=== PATIENT | female | born 1985 | race Hispanic/Latino ===

== ENCOUNTER 2018-07-14 08:18 | Outpatient (CLI) | payer OTHER ==
--- NOTE | 2018-07-14 11:38 | ULT ---
ULTRASOUND OBSTETRICAL COMPLETE: DATE: 07-14-18 HISTORY: 32-year-old female for Z34.82, encounter for supervision of other normal , 2nd trimester. FINDINGS: number: Kevin lie: Breech Maternal cervix: 6 cm in length. Closed. Placenta: Anterior. No placenta previa. Amniotic fluid volume: MIGUEL 16 cm heart rate: 146 bpm The following anatomy is visualized, with no evidence of anomalies: Head, lateral ventricles, cerebellum, nose and lips, spine, upper limbs, lower limbs, four chamber he art, umbilical cord, cord insertion, stomach, kidneys, and bladder. biometry: Head circumference (HC): 21.2 cm 23 w 3 d Biparietal diameter (BPD): 5.7 cm 23 w 4 d Abdominal circumference (AC): 18.2 cm 23 w 1 d Femur length (FL): 3.9 cm 23 w 4 d Average ultrasound age (AUA): 23 w 2 d Estimated date of delivery (HERI): 11-08-2018 Last menstrual period (LMP): 01-29-2018 Gestational age by LMP: 23 w 5 d Estimated weight (EFW): 544 g +/- 79 g (1 lb. 3 oz. +/- 3 oz.) IMPRESSION: 1. Live 2nd trimester intrauterine gestation. 2. Estimated gestational age of 23 weeks, 2 days. 3. Breech lie. 4. No anatomical abnormalities. jn POS: TPC
== END 2018-07-14 08:19 | disposition home or self-care (01) ==
LOC: BICULT 08:18
PROVIDERS: ATTEND Nurse Practitioner
DX: Z34.82 Encounter for supervision of other normal pregnancy, second trimester (principal); O32.1XX0 Maternal care for breech presentation, not applicable or unspecified; Z3A.23 23 weeks gestation of pregnancy
CPT/HCPCS: 76805

== ENCOUNTER 2018-10-09 06:22 | Inpatient (IN) | payer OTHER, SELFPAY ==
[2018-10-09] MEDS ORDERED: hydrALAZINE 20 MG/ML VIAL ONE (07:23)
[2018-10-09] MEDS ORDERED: Labetalol HCl 100 MG/20 ML VIAL ONE (07:23)
[2018-10-09] MEDS: Lactated Ringer's 1,000 ML IV SCH (07:45)
[2018-10-09] MEDS ORDERED: Ondansetron PF 4 MG/2 ML Vial IVP PRN (07:48)
[2018-10-09] MEDS: Labetalol HCl 100 MG/20 ML VIAL SLOW IVP PRN ×2 (07:49→08:03)
[2018-10-09] MEDS ORDERED: Calcium Gluc 4.6 MEQ/10 ML (100 MG/ML) SLOW IVP PRN (07:50)
[2018-10-09] MEDS ORDERED: Magnesium Sulfate 20 GM/WATER 500 ML BAG IVPB SCH (08:00)
[2018-10-09] MEDS ORDERED: Betamet Acet/Betamet Na Ph 30 MG/5 ML VIAL ONE (08:05)
[2018-10-09] MEDS ORDERED: Magnesium Sulfate 20 gm/500 ml 20 GM/500 ML BAG ONE (08:05)
[2018-10-09 08:09] LABS: Hemoglobin 12.6 g/dL (12.0-16.0); Mean Corpuscular HGB CONC 34.6 g/dL (32.0-36.0); Mean Corpuscular Hemoglobin 32.5 pg (27.0-31.0); Mean Platelet Volume 10.3 fL (7.4-10.4); Platelet Count 143 thou/uL (130-400); RBC Distribution Width 13.2 % (11.5-14.5); Red Blood Cell (RBC) Count 3.86 mill/uL (4.20-5.40); White Blood Cell (WBC) Count 10.5 thou/uL (4.8-10.8)
[2018-10-09] MEDS: Betamet Acet/Betamet Na Ph 30 MG/5 ML VIAL IM SCH (08:11)
[2018-10-09] MEDS: Magnesium Sulfate 20 gm/500 ml 20 GM/500 ML BAG IVPB SCH ×2 (08:32→16:02)
[2018-10-09 08:33] LABS: ALT (SGPT) 37 U/L (8-55); AST (SGOT) 42 U/L (5-34); Albumin 3.2 g/dL (3.5-5.0); Alkaline Phosphatase 136 U/L (40-150); Anion Gap 15 mmol/L (10-20); BUN (Urea Nitrogen) 13 mg/dL (7.0-18.7); Bilirubin, Total 0.3 mg/dL (0.2-1.2); Calc. Creatinine Clearance 176 mL/min (70-130); Calcium 8.9 mg/dL (7.8-10.44); Carbon Dioxide 20 mmol/L (22-29); Chloride 105 mmol/L (98-107); Estimated GFR-MDRD Greater than 90; Glucose 79 mg/dL (70-105); Potassium 4.6 mmol/L (3.5-5.1); Protein, Total 6.2 g/dL (6.0-8.3); Sodium 135 mmol/L (136-145)
[2018-10-09 08:57] LABS: Hep B Surf Ag Non-Reactive S/CO (NonReactive)
[2018-10-09 09:36] LABS: Syphilis Antibody Nonreactive (Nonreactive); Syphilis Antibody Index 0.03 S/CO (<1.00 Non-Reactive)
[2018-10-09 10:25] VITALS: BMI 39.0
[2018-10-09] MEDS: Labetalol 100 MG TAB PO SCH ×2 (10:54→18:35)
[2018-10-10] MEDS: Magnesium Sulfate 20 gm/500 ml 20 GM/500 ML BAG IVPB SCH (01:14)
[2018-10-10 06:45] LABS: Hemoglobin 11.5 g/dL (12.0-16.0); Mean Corpuscular HGB CONC 34.4 g/dL (32.0-36.0); Mean Corpuscular Hemoglobin 32.4 pg (27.0-31.0); Mean Corpuscular Volume 94.1 fL (78.0-98.0); Mean Platelet Volume 9.5 fL (7.4-10.4); Platelet Count 139 thou/uL (130-400); RBC Distribution Width 13.3 % (11.5-14.5); Red Blood Cell (RBC) Count 3.54 mill/uL (4.20-5.40)
[2018-10-10 06:52] LABS: Band 3 % (5-11); Lymphocytes 14 % (21-51); MDiff Complete? YES; Monocytes 5 % (0-10); Neutrophil 78 % (42-75); Platelet Morphology Comment Appears Adequate
[2018-10-10 07:09] LABS: ALT (SGPT) 35 U/L (8-55); AST (SGOT) 34 U/L (5-34); Alkaline Phosphatase 121 U/L (40-150); Anion Gap 16 mmol/L (10-20); BUN (Urea Nitrogen) 16 mg/dL (7.0-18.7); Bilirubin, Total 0.2 mg/dL (0.2-1.2); Calc. Creatinine Clearance 176 mL/min (70-130); Calcium 7.2 mg/dL (7.8-10.44); Carbon Dioxide 16 mmol/L (22-29); Chloride 103 mmol/L (98-107); Estimated GFR-MDRD Greater than 90; Globulin 3.1 g/dL (2.4-3.5); Glucose 110 mg/dL (70-105); Potassium 4.8 mmol/L (3.5-5.1); Protein, Total 6.1 g/dL (6.0-8.3); Sodium 130 mmol/L (136-145)
[2018-10-10] MEDS: Betamet Acet/Betamet Na Ph 30 MG/5 ML VIAL IM SCH (08:16)
[2018-10-10 09:50] LABS: Urine Total Volume 2195 mL (600-1600)
[2018-10-10 09:54] LABS: Protein - 24 Hr 1910 mg/24 hr (Less than 300); Protein, Urine 87 mg/dL (1-14)
[2018-10-10] MEDS: Lactated Ringer's 1,000 ML IV SCH ×2 (11:18→19:27)
[2018-10-10] MEDS: Labetalol 100 MG TAB PO SCH (12:24)
[2018-10-10] MEDS ORDERED: Labetalol 100 MG TAB PO SCH ×2 (12:45→21:00)
[2018-10-11] MEDS: Lactated Ringer's 1,000 ML IV SCH ×2 (00:05→14:28)
[2018-10-11] MEDS: Labetalol 100 MG TAB PO SCH ×2 (00:07→12:49)
[2018-10-11 12:50] VITALS: BP 125/67
--- NOTE | 2018-10-11 13:38 | ULT ---
OB ULTRASOUND: HISTORY: Gestational hypertension. FINDINGS: Real-time imaging of the pelvis was obtained transabdominally. This shows a single viable intrauteri ne which is in a cephalic presentation. The placenta is anterior in location without evide nce of previa. Visually, the amniotic fluid appears low. Amniotic fluid index is 9.2. The he art rate is 124 b.p.m. measurements are as follows: BPD 8.6 cm, 34 weeks 6 days Head circumference 31.3 cm, 35 weeks 1 day Abdominal circumference 30.1 cm, 34 weeks 0 days Femur length 6.7 cm, 34 weeks 2 days Limited assessment of anatomy. A four-chamber heart was not well visualized. Head was difficu lt to visualize as were the facial structures and cord region. Doppler evaluation of umbilical artery: Umbilical artery measurements were obtained at several levels. Near the insertion on the fetus, syst olic velocity measures were 101 cm/s, diastolic 44 cm/s for a systolic to diastolic ratio of 2.3. At the level of the placenta, systolic measurements are 55 cm/s, end-diastolic 30 cm/s with a ratio of 1.8. IMPRESSION: 1. Single viable intrauterine in a cephalic presentation. Overall measurements correspond ing to a gestational age of 34 weeks 4 days with estimated date of delivery of 11/18/2018. Clinical a ge is 36 weeks 3 days. This is within the normal range. 2. Amniotic fluid index of 9. Visually, the fluid appears borderline low. 3. Placenta which his anterior in location without evidence of previa. 4. The systolic to diastolic ratios of the umbilical artery range from 1.8 to 2.3. All measurements obtained below systolic to diastolic ratio of 3. POS: OFF
== END 2018-10-11 15:09 | disposition home health service (06) | DRG 833 ==
LOC: L&D/OP 06:22 → L&D 09:51
PROVIDERS: ADMIT Obstetrics & Gynecology; ATTEND Obstetrics & Gynecology
DX: O13.3 Gestational [pregnancy-induced] hypertension without significant proteinuria, third trimester (principal); Z3A.35 35 weeks gestation of pregnancy
CPT/HCPCS: 36415; 51702; 76700; 76815; 80053; 81003; 82570; 84156; 85007; 85027; 86780; 86850; 86900; 86901; 87081; 87340; 99285; J0360; J0702; J3475

== ENCOUNTER 2018-10-12 00:45 | Inpatient (IN) | payer MEDICAID, SELFPAY ==
[2018-10-12] MEDS ORDERED: Labetalol HCl 100 MG/20 ML VIAL ONE (01:11)
[2018-10-12] MEDS ORDERED: Magnesium Sulfate 20 gm/500 ml 20 GM/500 ML BAG ONE (01:14)
[2018-10-12] MEDS: Labetalol HCl 100 MG/20 ML VIAL SLOW IVP SCH ×5 (01:16→04:42)
[2018-10-12] MEDS ORDERED: Butorphanol Tartrate 1 MG/ML VIAL SLOW IVP PRN (01:20)
[2018-10-12] MEDS ORDERED: Ondansetron PF 4 MG/2 ML Vial IVP PRN ×3 (01:20→03:48)
[2018-10-12] MEDS ORDERED: Calcium Gluc 4.6 MEQ/10 ML (100 MG/ML) SLOW IVP PRN (01:20)
[2018-10-12] MEDS ORDERED: Promethazine HCl 25 MG/ML VIAL IM PRN ×2 (01:20→02:42)
[2018-10-12] MEDS ORDERED: Magnesium Sulfate 20 GM/WATER 500 ML BAG IVPB SCH (01:30)
[2018-10-12 01:38] LABS: Hemoglobin 12.2 g/dL (12.0-16.0); Mean Corpuscular HGB CONC 33.9 g/dL (32.0-36.0); Mean Corpuscular Hemoglobin 32.2 pg (27.0-31.0); Mean Corpuscular Volume 95.2 fL (78.0-98.0); Mean Platelet Volume 9.7 fL (7.4-10.4); Platelet Count 132 thou/uL (130-400); RBC Distribution Width 13.3 % (11.5-14.5)
[2018-10-12 01:55] LABS: Bilirubin Negative (Negative); Blood, Urine Small (Negative); Clarity CLOUDY (Clear); Glucose, Urine (Dipstick) Negative (Negative); Leukocyte Negative (Negative); Nitrite Negative (Negative); Protein, Urine (Dipstick) > or equal to 300 mg/dL (Neg-Trace); Specific Gravity, Urine 1.025 (1.002-1.036)
[2018-10-12 01:56] LABS: ALT (SGPT) 175 U/L (8-55); AST (SGOT) 172 U/L (5-34); Albumin 3.2 g/dL (3.5-5.0); Alkaline Phosphatase 142 U/L (40-150); Anion Gap 15 mmol/L (10-20); BUN (Urea Nitrogen) 18 mg/dL (7.0-18.7); Bilirubin, Total 0.3 mg/dL (0.2-1.2); Calc. Creatinine Clearance 0 mL/min (70-130); Calcium 9.2 mg/dL (7.8-10.44); Carbon Dioxide 22 mmol/L (22-29); Chloride 106 mmol/L (98-107); Estimated GFR-MDRD Greater than 90; Globulin 3.1 g/dL (2.4-3.5); Glucose 87 mg/dL (70-105); Potassium 4.9 mmol/L (3.5-5.1); Protein, Total 6.3 g/dL (6.0-8.3); Sodium 138 mmol/L (136-145)
[2018-10-12 01:58] LABS: Bacteria/HPF Rare-Few HPF (None Seen); Pathc Cast-AUWi Flag 0.81 (0-2.49); RBC/HPF 0-3 HPF (0-3); Squamous Epithelial 0-3 HPF (0-3)
[2018-10-12 02:00] LABS: Hyaline Casts/LPF 0-3 HYALINE CAST LPF (0-3 Hyaline)
[2018-10-12] MEDS ORDERED: hydrALAZINE 20 MG/ML VIAL ONE (02:00)
[2018-10-12 02:04] LABS: Amphetamine Not Detected (NotDetected); Benzodiazepine Screen Not Detected (NotDetected); Cocaine Metabolite Screen Not Detected (NotDetected); Medtox Reader # READER 4; Methadone Not Detected (NotDetected); Methamphetamine Not Detected (NotDetected); Opiate Screen Not Detected (NotDetected); Phencyclidine (PCP) Not Detected (NotDetected); THC/Cannabinoid Screen Not Detected (NotDetected); Tricyclic Screen Not Detected (NotDetected)
[2018-10-12 02:05] LABS: Barbiturates Screen Not Detected (NotDetected); Medtox Control Line Valid? VALID (VALID); Oxycodone Screen Not Detected (NotDetected)
[2018-10-12] MEDS ORDERED: ePHEDrine/0.9% NaCl/PF SYRINGE 50 mg/10 ml ONE (02:08)
[2018-10-12] MEDS ORDERED: Oxytocin 10 UNITS/ML VIAL ONE (02:08)
[2018-10-12] MEDS ORDERED: MORPHINE 5 MG/10 ML PF VIAL ONE (02:08)
[2018-10-12] MEDS ORDERED: Phenylephrine HCL 10 MG/ML VIAL ONE (02:08)
[2018-10-12 02:09] LABS: HBSAg Index 0.31 S/CO (0-0.99); Hep B Surf Ag Non-Reactive S/CO (NonReactive)
[2018-10-12] MEDS ORDERED: Azithromycin 500 MG VIAL ONE (02:28)
[2018-10-12] MEDS ORDERED: diphenhydrAMINE 50 MG/ML VIAL IVP PRN (02:42)
[2018-10-12] MEDS ORDERED: Naloxone HCl 0.4 mg/ml Vial IV PRN (02:42)
[2018-10-12] MEDS ORDERED: L&D-Morphine 4 MG/ML VIAL SLOW IVP PRN (02:42)
[2018-10-12] MEDS ORDERED: HYDROmorphone 2 MG/ML VIAL SLOW IVP PRN ×2 (02:42→04:30)
[2018-10-12] MEDS ORDERED: Promethazine HCl 25 MG SUPP PR PRN (02:42)
[2018-10-12] MEDS ORDERED: Ketorolac Tromethamine 30 MG/ML VIAL IVP PRN (02:42)
[2018-10-12] MEDS ORDERED: Meperidine HCl/PF 25 MG/ML VIAL SLOW IVP PRN (02:42)
[2018-10-12] MEDS ORDERED: Ondansetron HCl/PF 4 MG/2 ML Vial IVP PRN (02:42)
[2018-10-12] MEDS ORDERED: Naloxone HCl 0.4 mg/ml Vial IVP PRN ×2 (02:42)
[2018-10-12] MEDS ORDERED: Communication Order-Pharmacy FS SCH (02:45)
[2018-10-12] MEDS ORDERED: Ketorolac Tromethamine 30 MG/ML VIAL IVP SCH (02:45)
[2018-10-12] MEDS ORDERED: Ondansetron PF 4 MG/2 ML Vial ONE (02:53)
[2018-10-12] MEDS ORDERED: Dexamethasone 4 mg/ml Vial ONE (02:53)
[2018-10-12 03:00] VITALS: BMI 32.1
[2018-10-12] MEDS ORDERED: Meperidine HCl/PF 25 MG/ML VIAL ONE (03:02)
[2018-10-12 03:33] LABS: Syphilis Antibody Nonreactive (Nonreactive); Syphilis Antibody Index 0.03 S/CO (<1.00 Non-Reactive)
[2018-10-12] MEDS ORDERED: Lanolin Ointment 7 GM TUBE TOP PRN (03:48)
[2018-10-12] MEDS ORDERED: diphenhydrAMINE 25 MG CAP PO PRN (03:48)
[2018-10-12] MEDS ORDERED: Bisacodyl 10 MG SUPP PR PRN (03:48)
[2018-10-12] MEDS ORDERED: Calcium Gluconate 4.6 MEQ in Sodium Chloride 0.9% 100 ML IVPB PRN (03:48)
[2018-10-12] MEDS ORDERED: Simethicone Chewable 80 MG TAB PO PRN (03:48)
[2018-10-12] MEDS ORDERED: Magnesium Sulfate 20 gm/500 ml 20 GM/500 ML BAG IVPB SCH (04:00)
[2018-10-12] MEDS ORDERED: NS / Oxytocin 40 units/1000ml 1,000 ML IV SCH (04:00)
[2018-10-12] MEDS ORDERED: hydrALAZINE 20 MG/ML VIAL SLOW IVP SCH (05:15)
[2018-10-12] MEDS: Lactated Ringer's 1,000 ML IV SCH ×2 (05:28→18:16)
[2018-10-12] MEDS ORDERED: NIFEdipine 10 MG CAP ONE ×2 (07:14→07:45)
[2018-10-12] MEDS ORDERED: NIFEdipine 10 MG CAP PO SCH ×2 (08:00→08:20)
[2018-10-12] MEDS ORDERED: Adacel (T-DAP) 0.5 ML SYRINGE IM ONE (09:00)
[2018-10-12] MEDS ORDERED: Labetalol 100 MG TAB PO SCH (09:00)
[2018-10-12] MEDS: Magnesium Sulfate 20 gm/500 ml 20 GM/500 ML BAG IVPB SCH ×2 (10:11→20:24)
[2018-10-12] MEDS: NIFEdipine XL 30 MG TAB PO SCH ×2 (10:45→22:02)
[2018-10-12 11:25] LABS: ALT (SGPT) 1275 U/L (8-55); AST (SGOT) 1838 U/L (5-34); Albumin 2.7 g/dL (3.5-5.0); Alkaline Phosphatase 127 U/L (40-150); Anion Gap 15 mmol/L (10-20); BUN (Urea Nitrogen) 23 mg/dL (7.0-18.7); Bilirubin, Total 5.7 mg/dL (0.2-1.2); Calc. Creatinine Clearance 140 mL/min (70-130); Calcium 8.1 mg/dL (7.8-10.44); Carbon Dioxide 21 mmol/L (22-29); Chloride 103 mmol/L (98-107); Estimated GFR-MDRD Greater than 90; Globulin 2.9 g/dL (2.4-3.5); Glucose 119 mg/dL (70-105); Potassium 5.7 mmol/L (3.5-5.1); Protein, Total 5.6 g/dL (6.0-8.3); Sodium 133 mmol/L (136-145)
[2018-10-12 12:07] LABS: Hemoglobin 10.2 g/dL (12.0-16.0); Mean Corpuscular HGB CONC 34.5 g/dL (32.0-36.0); Mean Corpuscular Hemoglobin 32.1 pg (27.0-31.0); Platelet Count 32 thou/uL (130-400); RBC Distribution Width 13.9 % (11.5-14.5); Red Blood Cell (RBC) Count 3.19 mill/uL (4.20-5.40); White Blood Cell (WBC) Count 11.5 thou/uL (4.8-10.8)
[2018-10-12] MEDS ORDERED: HYDROcodone/Acetaminophen 5/325 mg Tablet PO PRN ×2 (14:45)
[2018-10-12] MEDS: Docusate Calcium (SURFAK) 240 MG CAP PO SCH (18:55)
[2018-10-12] MEDS: Prenatal Vitamin 1 TAB PO SCH (18:55)
[2018-10-13] MEDS: Docusate Calcium (SURFAK) 240 MG CAP PO SCH ×3 (00:45→21:18)
[2018-10-13] MEDS: Ibuprofen 800 MG TAB PO SCH ×3 (05:49→21:18)
[2018-10-13 07:02] LABS: Hemoglobin 9.9 g/dL (12.0-16.0); Mean Corpuscular HGB CONC 34.4 g/dL (32.0-36.0); Platelet Count 27 thou/uL (130-400); White Blood Cell (WBC) Count 10.7 thou/uL (4.8-10.8)
[2018-10-13 08:51] LABS: ALT (SGPT) 725 U/L (8-55); AST (SGOT) 739 U/L (5-34); Albumin 2.5 g/dL (3.5-5.0); Alkaline Phosphatase 122 U/L (40-150); Anion Gap 11 mmol/L (10-20); BUN (Urea Nitrogen) 22 mg/dL (7.0-18.7); Calc. Creatinine Clearance 142 mL/min (70-130); Calcium 7.3 mg/dL (7.8-10.44); Carbon Dioxide 26 mmol/L (22-29); Chloride 102 mmol/L (98-107); Estimated GFR-MDRD Greater than 90; Globulin 2.7 g/dL (2.4-3.5); Glucose 73 mg/dL (70-105); Protein, Total 5.2 g/dL (6.0-8.3); Sodium 134 mmol/L (136-145)
[2018-10-13] MEDS: NIFEdipine XL 30 MG TAB PO SCH ×2 (10:10→21:18)
[2018-10-13] MEDS: Lactated Ringer's 1,000 ML IV SCH ×2 (10:11→16:39)
[2018-10-13] MEDS: Prenatal Vitamin 1 TAB PO SCH (10:11)
[2018-10-13] MEDS: Labetalol HCl 100 MG/20 ML VIAL SLOW IVP SCH ×2 (23:29→23:30)
[2018-10-14] MEDS: Lactated Ringer's 1,000 ML IV SCH ×2 (05:07→09:40)
[2018-10-14] MEDS: Ibuprofen 800 MG TAB PO SCH ×2 (06:21→14:27)
[2018-10-14 06:31] LABS: Hemoglobin 9.1 g/dL (12.0-16.0); Mean Corpuscular HGB CONC 35.1 g/dL (32.0-36.0); Mean Corpuscular Hemoglobin 32.6 pg (27.0-31.0); Mean Corpuscular Volume 92.9 fL (78.0-98.0); Mean Platelet Volume 11.2 fL (7.4-10.4); Platelet Count 42 thou/uL (130-400); RBC Distribution Width 14.1 % (11.5-14.5); Red Blood Cell (RBC) Count 2.78 mill/uL (4.20-5.40); White Blood Cell (WBC) Count 11.3 thou/uL (4.8-10.8)
[2018-10-14 06:47] LABS: ALT (SGPT) 466 U/L (8-55); AST (SGOT) 229 U/L (5-34)
[2018-10-14 09:29] VITALS: BP 129/66; TEMP 98.8
[2018-10-14] MEDS: Labetalol HCl 100 MG/20 ML VIAL SLOW IVP SCH ×8 (09:33→09:40)
[2018-10-14] MEDS: NIFEdipine XL 30 MG TAB PO SCH (10:04)
[2018-10-14] MEDS: Prenatal Vitamin 1 TAB PO SCH (10:04)
[2018-10-14] MEDS: Docusate Calcium (SURFAK) 240 MG CAP PO SCH (10:05)
--- NOTE | 2018-10-14 13:36 | OP ---
DATE OF PROCEDURE: 10/12/2018 PREOPERATIVE DIAGNOSES: 1. A 32-year-old female, G3, P2, at 35 weeks plus with HELLP syndrome. 2. Remote from delivery. 3. GBS positive. 4. Prematurity, status post betamethasone x2 on recent admission 2 days prior. POSTOPERATIVE DIAGNOSES: 1. A 32-year-old female, G3, P2, at 35 weeks plus with HELLP syndrome. 2. Remote from delivery. 3. GBS positive. 4. Prematurity, status post betamethasone x2 on recent admission 2 days prior. 5. Live-born male , weighing 4 pounds and 9 ounces or 2075 g with Apgars of 7 and 9 at 1 and 5 minutes respectively. SURGEON: Maye Gilman MD HOT PLATE PRESS OPERATOR: Ramakrishna Fitzgerald MD ESTIMATED BLOOD LOSS: Approximately 600 mL. QUANTITATIVE BLOOD LOSS: 595 mL. ANESTHESIA: Spinal. CLINICAL HISTORY: This patient is a 32-year-old female, G3, P-2-0-0-2, with 2 previous vaginal deliveries at term, who was admitted 3 days prior with a concern for labor. She was found then to have a severe blood pressure x2 and was given labetalol IV x2 with resultant normal pressures. The patient was also initiated on magnesium therapy at that time, and a 24-hour urine was collected. She was stable on the magnesium, and plans to start labetalol were made; however, given the patient's low blood pressure in the low 100s to one teens over 60s to 70s, the initiation of labetalol p.o. was not started. The patient had a 24-hour course of the magnesium and was taken off the magnesium, and was able to hold her blood pressures stable with p.o. labetalol. The 24-hour urine came back grossly abnormal; however, there was no 24-hour urine prior to this to make a comparison as to if this was a change or not. The patient was monitored for another full 24 hours to see if she was going to be well controlled. Given her prematurity, she was given betamethasone on admission and then again at 24 hours for completion of steroids for lung maturity, and given the patient's quickly resolving course, it was projected that she could be managed as an outpatient with close followup. The patient was discharged on the and returned right after midnight on the with complaint of right upper quadrant pain that was severe and headache that started suddenly an hour prior. The patient had a category 1 tracing. She was assessed , and the initial blood pressure was 250/115. The patient had magnesium started immediately with her IV and laboratory studies were obtained. She was given IV labetalol 10, 10, and then 20 without resolution out of the severe range. The protocol then moved to the hydralazine, which she was given 5, 5, and then 10. By this time, she was in the operating room as she was remote from delivery and plans for emergent delivery were made. The risks, benefits, and possible complications as well as alternatives were discussed with the patient prior to deciding for the emergent section. DESCRIPTION OF PROCEDURE: The patient was taken to the operating room, where spinal anesthesia was obtained. She was laid in the supine position with a leftward tilt. A Jiménez catheter was placed with drainage of clear urine. The Doptones were obtained quickly and then the abdomen was cleaned with the Hibiclens in preparation for the section. The patient was then draped, and after testing for adequate anesthesia, an incision was made in the Pfannenstiel manner in the lower abdomen and this was carried down to the fascia. The fascia was exposed and nicked in the midline, and this incision was carried out bilaterally. The Seble clamps were used x2 to elevate the rectus muscles off the superior edge of the fascia, and in similar fashion, inferior fascial borders were elevated off the rectus and pyramidalis muscles. The incision was then made to separate the rectus muscles , and the peritoneum was breached with the surgeon's finger, this incision was extended with traction, and the bladder blade was placed. The anterior surface of the uterus was surveyed and a bladder flap was created with the Metzenbaum scissors. An incision was then made over the lower uterine segment with the scalpel and amniotomy was performed for clear fluid. The surgeon's hand was then placed into the incision after it was extended, and the head was delivered through the incision, the anterior shoulder, followed by the posterior shoulder, followed by the remainder of the infant's body was delivered. The cried spontaneously. The cord was doubly clamped and cut, and the was handed off to the nurses in attendance for the delivery. The cord blood was obtained and then the placenta was delivered manually and intact with a 3-vessel cord. The uterus was then exteriorized and massaged and cleansed of all debris, and the incision closure began with a 2-0 Vicryl in a running locking fashion. Excellent hemostasis was noted. Afterwards, an imbricating layer was performed with the another 2-0 Vicryl, and the bladder flap already appeared reapproximated in the original closure. The gutters were cleansed of all debris, and then Seprafilm was placed over the anterior surface of the uterus. The uterus was then placed back into the abdomen, and the peritoneum was closed in a running fashion. The rectus muscles were reapproximated with [id number] sutures, and the fascia was then closed with a 2-0 Vicryl with excellent hemostasis. The subcutaneous tissues were then copiously irrigated and closed with interrupted 2-0 plain gut sutures. The skin was then closed with a 3-0 Willian needle, and the incision was then reinforced with Steri-Strips and Mastisol. A pressure dressing was placed over the incision. The patient tolerated the procedure well. She was cleansed and de-draped and the uterus was expressed before transferring her to a rbuford for transfer to recovery room. All needle, sponge, lap, and instrument counts were correct x2 at the end of the procedure. There were no other issues surrounding this delivery. The patient was continued on magnesium for her care, and serial labs were planned. The blood pressure normalized while in the OR to the mild to normal range. Job ID: [id number] [facility]
[2018-10-14] MEDS ORDERED: Measles/Mumps/Rubella 10 MCG/0.5 ML VIAL SC ONE (15:45)
== END 2018-10-14 17:30 | disposition home or self-care (01) | DRG 788 ==
LOC: L&D/OP 00:45 → L&D 02:50 → 3SW 10-13 15:25
PROVIDERS: ADMIT Obstetrics & Gynecology; ATTEND Obstetrics & Gynecology
PROC: 10D00Z1 Extraction of Products of Conception, Low, Open Approach (ICD-10-PCS; principal; 2018-10-12)
PROC: 3E0P05Z Introduction of Adhesion Barrier into Female Reproductive, Open Approach (ICD-10-PCS; 2018-10-12)
DX: O14.24 HELLP syndrome, complicating childbirth (principal); O99.824 Streptococcus B carrier state complicating childbirth; Z3A.35 35 weeks gestation of pregnancy; Z37.0 Single live birth
CPT/HCPCS: 36415; 51702; 80053; 80306; 81001; 83735; 84450; 84460; 85027; 86780; 86850; 86900; 86901; 87340; 90707; 99285; J0360; J0456; J0690; J1100; J1170; J2175; J2270; J2370; J2405; J2590; J3475